=== PATIENT | male | born 1945 | race Caucasian/White ===

== ENCOUNTER 2017-12-15 22:39 | Observation (INO) | payer MEDICARE, OTHER ==
[~2017-12-15] VITALS: Ht 177.8 cm; Wt 79.4 kg
--- NOTE | 2017-12-15 22:56 | ER Report ---
History and Physical Time Seen By MD: 22:56 HPI/ROS CHIEF COMPLAINT: Nausea, weakness HISTORY OF PRESENT ILLNESS: Patient is a 72-year-old male here traveling in route to [facility] from [place] with complaints of dizziness, lightheadedness episode while driving. Patient reports that while driving he developed the symptoms and ate some food thinking that he is having either hyperglycemia or hypoglycemia. Earlier he discovered that he had forgotten most of his medications in [place] after which time he stopped in [place] and then proceeded onto route when he discovered that he was having the symptoms. He reports eating the banana bread and having apples with some resolution of symptoms however decided to stop at the hospital for evaluation due to concern for diabetic issues. He was found to have rapid heart rate with A. fib RVR without signs of chest pain, shortness of breath or palpitations. Patient reports that he has intermittent paroxysmal atrial fibrillation and has not been on his medication since from what I was able to discern from the patient. Patient was found to be in atrial fibrillation with RVR with a rate of 176 on initial 12-lead EKG. Patient reports that he does have his insulin with him and his glucose testing device. Patient denies recent illness, fevers, headache, blurred vision, muscle or neuro deficits, abdominal pain, chest pain, shortness breath. Patient reports having coronary artery bypass in 1992 after which she had a stress test in the same year. Patient denies having a recent stress test in the interim. REVIEW OF SYSTEMS: Constitutional: No fever, no chills, + dizziness intermittently Eyes: No discharge. ENT: No sore throat. Cardiovascular: No chest pain, no palpitations. Respiratory: No cough, no shortness of breath. Gastrointestinal: No abdominal pain, no vomiting. Genitourinary: No hematuria. Musculoskeletal: No back pain. Skin: No rashes. Neurological: No headache, + lightheadedness without neuro deficits Allergies: Coded Allergies: Penicillins (Verified Allergy, Unknown, 12/15/17) Home Meds Reported Medications Glipizide (GLIPIZIDE) 10 Mg Tablet, 10 MG PO BID 12/16/17 Aspirin (ASPIR 81) 81 Mg Tablet.dr, 81 MG PO QDAY, TAB 12/16/17 Metformin Hcl (METFORMIN HCL) 1,000 Mg Tablet, 2 TAB PO QDAY, TAB 12/16/17 Lisinopril (LISINOPRIL) 5 Mg Tablet, 5 MG PO QDAY, TAB 12/16/17 Atorvastatin Calcium (LIPITOR) 40 Mg Tablet, 2 TAB PO QDAY, TAB 12/16/17 Insulin Glargine (LANTUS) 100 Unit/Ml Soln, 100 UNIT SUBQ, ML 12/16/17 Warfarin Sodium (WARFARIN SODIUM) 5 Mg Tablet, 8 MG PO QDAY, TAB 12/16/17 Terazosin Hcl (TERAZOSIN HCL) 2 Mg Capsule, 2 MG PO QHS, CAPSULE 12/16/17 Bisoprolol Fumarate (BISOPROLOL FUMARATE) 5 Mg Tablet, 0.5 MG PO QDAY, #10 TAB 12/16/17 Constitutional Vital Sign - Last 24 Hours 12/15/17 12/15/17 12/15/17 12/15/17 22:49 22:50 22:54 23:00 Temp 97.8 Pulse 165 147 Resp 18 7 B/P (MAP) 151/129 (136) 151/129 136/97 (110) 146/98 (114) Pulse Ox 95 94 O2 Delivery Room Air 12/15/17 12/15/17 12/15/17 12/15/17 23:09 23:24 23:42 23:54 Pulse 146 103 126 Resp 15 13 13 B/P (MAP) 130/84 (99) Pulse Ox 95 90 94 12/15/17 12/16/17 12/16/17 12/16/17 23:59 00:00 00:30 00:42 Pulse 134 124 Resp 8 16 B/P (MAP) 159/107 (124) 146/122 (130) Pulse Ox 92 95 12/16/17 12/16/17 12/16/17 12/16/17 00:47 01:00 01:17 01:30 Pulse 135 75 Resp 13 15 B/P (MAP) 109/91 (97) 118/76 (90) Pulse Ox 90 94 12/16/17 12/16/17 12/16/17 12/16/17 01:35 01:35 01:40 01:45 Pulse 58 58 58 53 Resp 14 14 14 20 Pulse Ox 82 82 88 76 12/16/17 12/16/17 12/16/17 12/16/17 01:50 01:55 02:00 02:00 Pulse 52 46 45 Resp 7 14 16 B/P (MAP) 109/68 (82) 109/68 (82) Pulse Ox 90 94 90 12/16/17 12/16/17 12/16/17 12/16/17 02:05 02:05 02:10 02:15 Pulse 49 49 45 44 Resp 11 11 20 14 Pulse Ox 89 89 87 90 12/16/17 12/16/17 12/16/17 12/16/17 02:25 02:30 02:30 02:35 Pulse 38 42 39 59 Resp 19 21 33 B/P (MAP) 90/40 (57) 90/40 (57) 139/79 (99) Pulse Ox 90 90 98 12/16/17 12/16/17 12/16/17 12/16/17 02:35 02:40 02:50 02:55 Pulse 59 76 51 64 Resp 33 21 12 17 B/P (MAP) 139/79 (99) Pulse Ox 98 96 92 97 12/16/17 12/16/17 03:00 03:13 B/P (MAP) 137/82 (100) 124/75 (91) Intake and Output 12/15/17 12/15/17 12/16/17 15:00 23:00 07:00 Intake Total 55.5 ml Balance 55.5 ml Physical Exam General Appearance: The patient is alert, has no immediate need for airway protection and no signs of toxicity. No acute distress Eyes: Pupils equal and round no pallor or injection. ENT, Mouth: Mucous membranes are moist. Respiratory: There are no retractions, lungs are clear to auscultation. Cardiovascular: Irregularly irregular heartbeat Gastrointestinal: Abdomen is soft and non tender, no masses, bowel sounds normal. Neurological: No focal neurological deficits Skin: Warm and dry, no rashes. Musculoskeletal: Neck is supple non tender. Extremities are nontender, nonswollen and have full range of motion. DIFFERENTIAL DIAGNOSIS: After history and physical exam differential diagnosis was considered for dizziness including but not limited to peripheral and central causes of vertigo, orthostatic causes including dehydration, and blood loss, hypoglycemia, arrhythmia, A. fib RVR Medical Decision Making Data Points Result Diagram: 12/15/17 2300 12/15/17 2300 Laboratory Hematology Test 12/15/17 23:00 12/15/17 23:59 12/16/17 01:52 Red Blood Count 5.22 M/uL (4.00-5.60) Mean Corpuscular Volume 89.2 fL (80.0-96.0) Mean Corpuscular Hemoglobin 30.4 pg (26.0-33.0) Mean Corpuscular Hemoglobin Concent 34.1 g/dL (32.0-36.0) Red Cell Distribution Width 13.8 % (11.5-14.5) Mean Platelet Volume 10.0 fL (7.2-11.1) Neutrophils (%) (Auto) 83.8 % (39.4-72.5) Lymphocytes (%) (Auto) 8.6 % (17.6-49.6) Monocytes (%) (Auto) 6.6 % (4.1-12.4) Eosinophils (%) (Auto) 0.6 % (0.4-6.7) Basophils (%) (Auto) 0.4 % (0.3-1.4) Nucleated RBC Relative Count (auto) 0.1 /100WBC Neutrophils # (Auto) 9.3 K/uL (2.0-7.4) Lymphocytes # (Auto) 1.0 K/uL (1.3-3.6) Monocytes # (Auto) 0.7 K/uL (0.3-1.0) Eosinophils # (Auto) 0.1 K/uL (0.0-0.5) Basophils # (Auto) 0.0 K/uL (0.0-0.1) Nucleated RBC Absolute Count (auto) 0.01 K/uL Prothrombin Time 26.7 seconds (12.0-14.4) Prothromb Time International Ratio 2.42 Activated Partial Thromboplast Time 34 seconds (23-35) Sodium Level 140 mmol/L (137-145) Potassium Level 3.8 mmol/L (3.5-5.0) Chloride Level 97 mmol/L (98-107) Carbon Dioxide Level 28 mmol/L (22-30) Blood Urea Nitrogen 15 mg/dl (9-21) Creatinine 0.60 mg/dl (0.66-1.25) Glomerular Filtration Rate Calc > 60.0 Random Glucose 366 mg/dl (75-110) Calcium Level 9.4 mg/dl (8.4-10.2) Total Bilirubin 0.8 mg/dl (0.2-1.3) Aspartate Amino Transf (AST/SGOT) 37 U/L (0-35) Alanine Aminotransferase (ALT/SGPT) 57 U/L (0-56) Alkaline Phosphatase 52 U/L (0-126) B-Type Natriuretic Peptide 83 pg/ml (0-100) Total Protein 8.6 g/dl (6.3-8.2) Albumin 4.8 g/dl (3.5-5.0) Urine Color Straw Urine Clarity Clear Urine pH 5.0 pH (4.8-9.5) Urine Specific [place] 1.011 Urine Protein 30 mg/dL (NEGATIVE) Urine Glucose (UA) 500 mg/dL (NEGATIVE) Urine Ketones Trace mg/dL (NEGATIVE) Urine Blood Small (NEGATIVE) Urine Nitrite Negative (NEGATIVE) Urine Bilirubin Negative (NEGATIVE) Urine Urobilinogen Negative mg/dL (0.2-1.9) Urine Leukocyte Esterase Negative (NEGATIVE) Urine RBC 2 /HPF (0-2/HPF) Urine WBC <1 /HPF (0-5/HPF) Urine Squamous Epithelial Cells None /LPF (</=FEW) Urine Bacteria Negative /HPF (NONE-FEW) Urine Mucus None /HPF (NONE-FEW) Troponin I 0.287 ng/ml Chemistry Test 12/15/17 23:00 12/15/17 23:59 12/16/17 01:52 White Blood Count 11.1 k/uL (4.5-11.0) Red Blood Count 5.22 M/uL (4.00-5.60) Hemoglobin 15.9 g/dL (14.0-18.0) Hematocrit 46.6 % (42.0-52.0) Mean Corpuscular Volume 89.2 fL (80.0-96.0) Mean Corpuscular Hemoglobin 30.4 pg (26.0-33.0) Mean Corpuscular Hemoglobin Concent 34.1 g/dL (32.0-36.0) Red Cell Distribution Width 13.8 % (11.5-14.5) Platelet Count 274 K/uL (150-450) Mean Platelet Volume 10.0 fL (7.2-11.1) Neutrophils (%) (Auto) 83.8 % (39.4-72.5) Lymphocytes (%) (Auto) 8.6 % (17.6-49.6) Monocytes (%) (Auto) 6.6 % (4.1-12.4) Eosinophils (%) (Auto) 0.6 % (0.4-6.7) Basophils (%) (Auto) 0.4 % (0.3-1.4) Nucleated RBC Relative Count (auto) 0.1 /100WBC Neutrophils # (Auto) 9.3 K/uL (2.0-7.4) Lymphocytes # (Auto) 1.0 K/uL (1.3-3.6) Monocytes # (Auto) 0.7 K/uL (0.3-1.0) Eosinophils # (Auto) 0.1 K/uL (0.0-0.5) Basophils # (Auto) 0.0 K/uL (0.0-0.1) Nucleated RBC Absolute Count (auto) 0.01 K/uL Prothrombin Time 26.7 seconds (12.0-14.4) Prothromb Time International Ratio 2.42 Activated Partial Thromboplast Time 34 seconds (23-35) Glomerular Filtration Rate Calc > 60.0 Calcium Level 9.4 mg/dl (8.4-10.2) Total Bilirubin 0.8 mg/dl (0.2-1.3) Aspartate Amino Transf (AST/SGOT) 37 U/L (0-35) Alanine Aminotransferase (ALT/SGPT) 57 U/L (0-56) Alkaline Phosphatase 52 U/L (0-126) B-Type Natriuretic Peptide 83 pg/ml (0-100) Total Protein 8.6 g/dl (6.3-8.2) Albumin 4.8 g/dl (3.5-5.0) Urine Color Straw Urine Clarity Clear Urine pH 5.0 pH (4.8-9.5) Urine Specific [place] 1.011 Urine Protein 30 mg/dL (NEGATIVE) Urine Glucose (UA) 500 mg/dL (NEGATIVE) Urine Ketones Trace mg/dL (NEGATIVE) Urine Blood Small (NEGATIVE) Urine Nitrite Negative (NEGATIVE) Urine Bilirubin Negative (NEGATIVE) Urine Urobilinogen Negative mg/dL (0.2-1.9) Urine Leukocyte Esterase Negative (NEGATIVE) Urine RBC 2 /HPF (0-2/HPF) Urine WBC <1 /HPF (0-5/HPF) Urine Squamous Epithelial Cells None /LPF (</=FEW) Urine Bacteria Negative /HPF (NONE-FEW) Urine Mucus None /HPF (NONE-FEW) Troponin I 0.287 ng/ml Coagulation Test 12/15/17 23:00 Prothrombin Time 26.7 seconds Prothromb Time International Ratio 2.42 Activated Partial Thromboplast Time 34 seconds Urinalysis Test 12/15/17 23:59 Urine Color Straw Urine Clarity Clear Urine pH 5.0 pH (4.8-9.5) Urine Specific [place] 1.011 Urine Protein 30 mg/dL (NEGATIVE) Urine Glucose (UA) 500 mg/dL (NEGATIVE) Urine Ketones Trace mg/dL (NEGATIVE) Urine Blood Small (NEGATIVE) Urine Nitrite Negative (NEGATIVE) Urine Bilirubin Negative (NEGATIVE) Urine Urobilinogen Negative mg/dL (0.2-1.9) Urine Leukocyte Esterase Negative (NEGATIVE) Urine RBC 2 /HPF (0-2/HPF) Urine WBC <1 /HPF (0-5/HPF) Urine Squamous Epithelial Cells None /LPF (</=FEW) Urine Bacteria Negative /HPF (NONE-FEW) Urine Mucus None /HPF (NONE-FEW) EKG/Imaging EKG Interpretation 12 lead EKG December 15, 2302: A. fib RVR, rate 176, QTc 479, no ischemic changes though an isolated Q-wave was identified in lead 3 Rhythm: Atrial fibrillation with RVR 12 lead EKG: December 16 atrial fibrillation with slow ventricular response, rate 51, QTc 444, isolated Q wave in lead 3 again identified Rhythm: A. fib SVR Monitor Interpretation: Atrial Fibrillation Imaging Location: [facility] [place] Patient: Juan Frey : 1945 Visit/Account:[id number] Date of Sevice: 12/15/2017 TWO VIEW CHEST 12/15/2017 11:08 PM. INDICATION: Chest Pain COMPARISON: None. FINDINGS: Lungs are well-expanded. The lungs are clear. No pneumothorax or pleural effusion. Pulmonary vasculature is unremarkable. Heart size is normal. Postoperative changes to the mediastinum/sternum consistent with CABG. IMPRESSION: No acute cardiopulmonary abnormality. ED Course/Re-evaluation ED Course Patient is a 72-year-old male here with complaints of dizziness, lightheadedness, generalized weakness and diaphoresis which started approximately 1800 hrs. Patient has a history significant for diabetes, coronary artery disease status post CABG in 1992. Patient was found to be in A. fib RVR in the setting of a history of paroxysmal A. fib RVR. Patient reports that he has not taken majority of his medications which included bisoprolol, lisinopril, warfarin, metformin as he left them at home. Patient reports that he has refills for HIS medications in [facility]. Patient was initially given diltiazem 10 mg and placed on a diltiazem drip. I discussed the patient initially cardiology at [facility] with due to an elevated troponin and he advised me that the elevated troponin was likely type 2 demand ischemia that the patient could likely be sent home after getting the rate under control. He was also placed on overlapping Bisoprolol which is the patient's home medication but since he had not been on this since the , he was given 5 mg PO since it was likely out of his system completely I also discussed the patient with Dr. Matias who is the hospitalist on-call who also agreed with this course of action. Patient's repeat troponin was taken at 145 which was found to be elevated at 0.2. I contacted Dr. Alexander regarding the value who felt that this value was still within the spectrum of non ischemic type 2 demand from prior AFIB RVR. Patient's heart rate initially dropped further than expected into the high 30's which was surprising since it was a relatively low dose of the medication. Patient was given glucagon 4 mg for partial reversal of beta blockade toxicity which resulted initially in afib bradycardia with concurrent fatigue secondary to bradycardia. Heart rate was transiently increased. Patient was given zofran for glucagon related nausea and a liter of fluid for rehydration. Patient was later given 0.3 mg Atropine with transient increase. Throughout course, patient was mentating appropriately so patient was being adequately perfused in spite of low heart rates. I updated Dr. Matias regarding the subsequent findings and he accepted the patient to his service for further stabilization. Patient retained a stable blood pressure in spite of low heart rate during course with adequate perfusion. Decision to Disposition Date: Dec 16, 2017 Decision to Disposition Time: 03:44 Depart Departure Latest Vital Signs Vital Signs Date Time Temp Pulse Resp B/P (MAP) Pulse Ox O2 Delivery O2 Flow Rate FiO2 12/16/17 03:13 124/75 (91) 12/16/17 02:55 64 17 97 12/15/17 22:50 97.8 Room Air Impression: Primary Impression: A-fib Additional Impression: Dizziness Condition: Improved Disposition: Admitted from ER Problem Qualifiers MILTON ONEAL DO Dec 15, 2017 22:56
[2017-12-15] MEDS ORDERED: NS(*) 0.9% 1000 ML BAG 1,000 ML IV ONE (23:08)
[2017-12-15] MEDS ORDERED: DILTIAZEM 5 MG/ML 5ML IVPUSH IVP ONE (23:10)
--- NOTE | 2017-12-15 23:17 | EKG ---
FACILITY: [facility] - [place] PATIENT NAME: ISHAN SHELTON : [id number] MR: [id number] V: [id number] EXAM DATE: ORDERING PHYSICIAN: MILTON ONEAL TECHNOLOGIST: FENG Test Reason : a fib Blood Pressure : / mmHG Vent. Rate : 176 BPM Atrial Rate : 197 BPM P-R Int : 000 ms QRS Dur : 090 ms QT Int : 280 ms P-R-T Axes : 000 069 -24 degrees QTc Int : 479 ms Atrial fibrillation with rapid ventricular response Cannot rule out Inferior infarct , probably old , with isolated Q in III No previous ECGs available Confirmed by TYLER NOLEN ([id number]) on 12/16/2017 12:51:44 AM Referred By: Confirmed By:TYLER NLOEN
[2017-12-15 23:19] LABS: PLATELET COUNT, AUTOMATED 274 K/uL (150-450)
[2017-12-15 23:22] LABS: INR 2.42
[2017-12-15] MEDS ORDERED: ASPIRIN 81 MG CHEW PO ONE (23:40)
--- NOTE | 2017-12-15 23:50 | RADIOLOGY IMAGING REPORT ---
FACILITY: [facility] [place] PATIENT NAME: Juan Frey : 1945 MR: [id number] V: [id number] EXAM DATE: ORDERING PHYSICIAN: MILTON ONEAL TECHNOLOGIST: Location: [facility] Patient: Juan Frey : 1945 Visit/Account:[id number] Date of Sevice: 12/15/2017 TWO VIEW CHEST 12/15/2017 11:08 PM. INDICATION: Chest Pain COMPARISON: None. FINDINGS: Lungs are well-expanded. The lungs are clear. No pneumothorax or pleural effusion. Pulmo nary vasculature is unremarkable. Heart size is normal. Postoperative changes to the mediastinum/st ernum consistent with CABG. IMPRESSION: No acute cardiopulmonary abnormality. Report Dictated By: Latrell Horan MD at 12/15/2017 11:44 PM Report E-Signed By: Latrell Horan MD at 12/15/2017 11:46 PM WSN:[id number]
[2017-12-16] VITALS (25 sets, daily range): BP systolic 99–151; BP diastolic 58–98; Ht 177.8 cm; Wt 79.4 kg
[2017-12-16] MEDS ORDERED: HEPARIN* SOD/D5W 25000 U/500ML 500 ML IV ONE (00:20)
[2017-12-16] MEDS ORDERED: DILTIAZEM HCL* 100 MG ADDVIAL 100 MG in NS(*) 0.9% 100 ML ADDVANT BAG 100 ML IV SCH (00:45)
[2017-12-16] MEDS ORDERED: METOPROLOL TART 50 MG TAB PO ONE (00:50)
[2017-12-16] MEDS ORDERED: BISOPROLOL FUMARATE 5 MG TAB PO ONE (01:00)
[2017-12-16] MEDS ORDERED: BISO5TAB23 PO (01:44)
[2017-12-16] MEDS ORDERED: WARF5TAB23 PO (01:44)
[2017-12-16] MEDS ORDERED: TERA2CAP54 PO (01:44)
[2017-12-16] MEDS ORDERED: METF-452 PO (01:48)
[2017-12-16] MEDS ORDERED: LANI SUBQ (01:48)
[2017-12-16] MEDS ORDERED: ATOR40TA24 PO (01:48)
[2017-12-16] MEDS ORDERED: ASPI-1471 PO (01:48)
[2017-12-16] MEDS ORDERED: LISI5TAB25 PO (01:48)
[2017-12-16] MEDS ORDERED: GLIP-154 PO (01:48)
[2017-12-16] MEDS ORDERED: GLUCAGON 1 MG KIT ONE ×3 (02:23→02:34)
[2017-12-16] MEDS ORDERED: ATROPINE SUL 0.1MG/ML 10ML SYR ONE (02:27)
[2017-12-16] MEDS ORDERED: ONDANSETRON 4 MG/2 ML VIAL ONE (02:28)
--- NOTE | 2017-12-16 03:02 | EKG ---
FACILITY: [facility] - [place] PATIENT NAME: ISHAN SHELTON : [id number] MR: [id number] V: [id number] EXAM DATE: ORDERING PHYSICIAN: MILTON ONEAL TECHNOLOGIST: FENG Test Reason : Blood Pressure : / mmHG Vent. Rate : 051 BPM Atrial Rate : 037 BPM P-R Int : 000 ms QRS Dur : 086 ms QT Int : 482 ms P-R-T Axes : 000 065 089 degrees QTc Int : 444 ms Atrial fibrillation with slow ventricular response Abnormal ECG When compared with ECG of 15-DEC-2017 23:03, Vent. rate has decreased BY 125 BPM Minimal criteria for Inferior infarct are no longer present ST elevation has replaced ST depression in Inferior leads ST no longer depressed in Anterolateral leads T wave inversion no longer evident in Inferior leads Nonspecific T wave abnormality now evident in Lateral leads Confirmed by TYLER NOLEN ([id number]) on 12/16/2017 5:36:41 AM Referred By: KIMMY Confirmed By:TYLER NOLEN
[2017-12-16] MEDS ORDERED: NS(*) 0.9% 1000 ML BAG 1,000 ML IV PRN (03:31)
[2017-12-16] MEDS ORDERED: INSULIN HUM REG 100 UN/ML 3 ML VIAL SC PRN (03:35)
--- NOTE | 2017-12-16 04:09 | History & Physical ---
History of Present Illness Chief Complaint Dizziness and weakness. History of Present Illness 72 yr old male with dizziness and generalized weakness as he traveled across [place] on his way to [place] to meet up with family. He did not complain of chest pain, SOB, nausea, sweating and did not pass out. He did not feel he could go any further and stopped at [place] just before midnight. He has a history of intermittent atrial fib. and takes a beta-jeison daily for this however he say he has not had a dose since 12/13 when he left his meds at home by mistake. Also a history of hypertension, hyperlipidemia, diabetes, coronary artery disease, CABG x5 in 1992, stenting ? date, CVA in 2001 possibly related to atrial fib. Recently lost his ex-. His step-daughter lives in [place] where he was to meet her to collect some household goods. In the ER, his heart rate was initially 170-180/min and was treated with diltiazem bolus and drip. This dropped the heart rate quickly most likely due to overlapping effect with previous B-jeison, given the long half life of B-blockers in general. Fluids were started and he was given IV glucagon and atropine to help reverse the bradyarrhythmia. This made him nauseated. Initial troponin was 0.075 and subsequently increased to 0.287. Cardiology was contacted in [place] and declined transfer suggesting the elevation of the troponin was due to tachyarrhythmias. Patient admitted to ICU for further care. History Problems: (1) CAD, multiple vessel Status: Chronic Comment: S/P AL at age 48 years. (2) S/P CABG x 5 Status: Resolved Comment: 1992 in [place] followed by stenting procedure years later (?? what year). (3) Diabetes mellitus, type 2 Status: Chronic Comment: On multiple meds including metformin, glipizide and insulin. (4) Hyperlipidemia Status: Chronic Comment: On lipitor 40 mg daily. (5) Hypertension Status: Chronic Comment: On lisinopril, bisoprolol and terazosin. (6) CVA (cerebral vascular accident) Status: Resolved Comment: Occurred post -op CABG. (7) S/P TURP Status: Resolved (8) Sleep apnea, obstructive Status: Chronic Comment: Uses CPAP at night. (9) Depression Status: Chronic Comment: Not treated. Other Past Medical Hx Last flu shot 2016. Home Meds Reported Medications Glipizide (GLIPIZIDE) 10 Mg Tablet, 10 MG PO BID 12/16/17 Aspirin (ASPIR 81) 81 Mg Tablet.dr, 81 MG PO QDAY, TAB 12/16/17 Metformin Hcl (METFORMIN HCL) 1,000 Mg Tablet, 2 TAB PO QDAY, TAB 12/16/17 Lisinopril (LISINOPRIL) 5 Mg Tablet, 5 MG PO QDAY, TAB 12/16/17 Atorvastatin Calcium (LIPITOR) 40 Mg Tablet, 2 TAB PO QDAY, TAB 12/16/17 Insulin Glargine (LANTUS) 100 Unit/Ml Soln, 100 UNIT SUBQ, ML 12/16/17 Warfarin Sodium (WARFARIN SODIUM) 5 Mg Tablet, 8 MG PO QDAY, TAB 12/16/17 Terazosin Hcl (TERAZOSIN HCL) 2 Mg Capsule, 2 MG PO QHS, CAPSULE 12/16/17 Bisoprolol Fumarate (BISOPROLOL FUMARATE) 5 Mg Tablet, 0.5 MG PO QDAY, #10 TAB 12/16/17 Allergies: Coded Allergies: Penicillins (Verified Allergy, Unknown, 12/15/17) Hx Alcohol Use: Yes (occ.) Alcohol Use: Occassional Alcohol Used: Liquor Hx Substance Use Disorder: No Social Drug Use: Never Review of Systems Neurological: Weakness; No Syncope, No Confusion, No Dizziness, No Slurred Speech Eyes: No Vision Change, No Loss of Vision, No Photophobia Cardiovascular: No Chest Pain, No Palpitations, No Orthostatic Hypotension Respiratory: No Shortness of Breath, No Cough, No Wheezing Gastrointestinal: Nausea Genitourinary: No Dysuria, No Hematuria, No Urinary Incontinence Musculoskeletal: No Pain, No Sprain, No Strain, No Impaired Mobility Psychiatric: Depression, Anxiety Exam Vital Signs Vital Signs Date Time Temp Pulse Resp B/P (MAP) Pulse Ox O2 Delivery O2 Flow Rate FiO2 12/16/17 04:09 98.5 52 14 110/68 (82) 94 Nasal Cannula 1.0 General Appearance: Alert, Awake, No Acute Distress, Afebrile Neuro: No Gross deficits, Other (Seems a bit unsure of some details of history and current plans with family in [place].) Cardiovascular: Other (S1S2 are soft. No murmurs, gallops or rubs. Rate is slow.) Respiratory: Clear to Auscultation Chest: No Tenderness GI: Abd Soft and Non-Tender, Other (BS are active.) : No CVA Tenderness Extremities: Soft and Non Tender, Warm, Pulses, Perfused, Other (No edema.) Psych: Alert & Oriented X3, Appropriate Mood & Affect Medical Decision Making Data Points Result Diagram: 12/15/17229912/15/172299 Item Value Date Time Prothromb Time International Ratio 2.42 12/15/172299 Calcium Level 9.4 mg/dl 12/15/172299 Total Bilirubin 0.8 mg/dl 12/15/172299 Aspartate Amino Transf (AST/SGOT) 37 U/L H 12/15/172299 Alanine Aminotransferase (ALT/SGPT) 57 U/L H 12/15/172299 Alkaline Phosphatase 52 U/L 12/15/172299 Troponin I 0.075 ng/ml 12/15/172299 B-Type Natriuretic Peptide 83 pg/ml 12/15/172299 Troponin I 0.287 ng/ml *H 12/16/17 0152 Total Protein 8.6 g/dl H 12/15/172299 Albumin 4.8 g/dl 12/15/172299 EKG / Imaging EKG Interpretation Atrial fib with RVR. Isolated Q III. Monitor Interpretation: Atrial Fibrillation Imaging CXR clear. Pre-Admit Course ED Medications Reviewed. Medical Record Review: Yes Assessment and Plan Problems: (1) Dizziness Status: Acute Assessment & Plan: Most likely due to atrial fib with RVR due a combination of inadequate medication administration over the past 2-3 days in addition to altitude effect and stress. Heart rate was controlled (and then some) with IV diltiazem in ER requiring use of glucagon and atropine for the bradycardia. Will hold cardiac meds and antihypertensives until BP and HR are stable. Gentle IV fluids with NS at 100cc/hr. (2) A-fib Status: Acute Assessment & Plan: RVR which has converted (at 0447) to sinus rhythm at 58/min. Will resume meds when HR and BP are stable. Continue coumadin and aspirin for anticoagulation in face of previous CVA and extensive vascular disease. Follow INR and will recheck at 0700. (3) Elevated troponin level Status: Acute Assessment & Plan: Most likely due to tachyarrhythmia but degree of elevation from 0.075 to 0.287 seems a bit extreme. Will recheck the level at 0700 and hopefully it will be lower. If not, will need to see cardiology. (4) CAD, multiple vessel Status: Chronic Assessment & Plan: S/P CABGx5 1992 with follow-up stent years later. (5) Diabetes mellitus, type 2 Status: Chronic Assessment & Plan: Check ac and hs glucose and cover with SS insulin at this point. Will resume oral meds and insulin when stable. Would prefer the sulfonylurea be stopped if possible due to potential side effects and use metformin and insulin ( or another, newer oral agent) if possible for control of DM. (6) Hyperlipidemia Status: Chronic Assessment & Plan: Continue lipitopr 40 mg daily. (7) Hypertension Status: Chronic Assessment & Plan: Resume usual meds when stable. (8) CVA (cerebral vascular accident) Status: Resolved Assessment & Plan: Continue anticoagulation as above. (9) Sleep apnea, obstructive Status: Chronic Assessment & Plan: CPAP has been ordered. (10) Depression Status: Chronic Assessment & Plan: No current treatment. I am also concerned that patient may have a very early dementia most likely due to vascular disease which is affecting his memory and his decision making. This will need to be followed as outpt. Time Spent on Plan of Care: > 30 min Critical Time Spent: Additional 30 Minutes Venous Thromboembolism VTE Risk Physician Assess for VTE Risk: Yes Patient's VTE Risk: Low VTE Diagnostic Test 2 Days Prior to Admit: No Antithrombotics Is Pt On Any Antithrombotics?: Yes Exam Sepsis Risk: No Definite Risk Problem Qualifiers (1) A-fib: Atrial fibrillation type: paroxysmal Qualified Codes: I48.0 - Paroxysmal atrial fibrillation ORTIZ NOLEN MD FACP Dec 16, 2017 04:08
[2017-12-16 07:37] LABS: INR 2.42
[2017-12-16] MEDS: ASPIRIN 81 MG ENTERIC COATED PO SCH (08:20)
[2017-12-16] MEDS: glipiZIDE 5 MG TAB PO SCH ×3 (08:20→17:17)
[2017-12-16] MEDS: INSULIN HUM LISPRO 100 UN/ML 3 ML VIAL SUBQ PRN ×2 (08:24→12:04)
--- NOTE | 2017-12-16 10:56 | Medical Nutrition Therapy ---
Nutrition Anthropometrics Height (Inches): 70.00 Height (Calculated Centimeters: 177.573259 Weight (Pounds): 175 Weight (Calculated Kilograms): 79.379 BMI: 25 Otoniel Nutrition Score: Adequate Otoniel Nutrition Risk Score: 20 Dietary Referral Nutrition Risk Factors: Nutrition Risk Comment: Physical Findings Physical Appearance: Overweight BMI 25-29 Skin Appearance Skin Appearance: Edema Edema Location Modifier: Edema Location: Type of Edema: Degree of Edema: Gastrointestinal Symptoms GI Symtoms: Tube Present: Bowel Sounds: Recent Bowel Pattern: Stool Characteristics: Nutritional Diagnosis Nutritional Risk Acuity 2: Blood Glucose > 300mg/dl Nutritional Risk Acuity 4: Modified Diet Past Medical History: Hx of CAD, s/p CABG x5, T2DM, HTN, hyperlipidemia, CVA, TURP, TO, and depression. Nutritional Acuity: 2-Moderate Nutrition Diagnosis: Inappropriate Carb Intake Nutrition Etiology: Inappropriate Food Choice Nutrition Problem/Etiology/Sym: Inappropriate carb intake, as related to inappropriate food choice, as evidenced by elevated blood glucose >300, with BG at 375. Energy Requirement: 2000 (Delaplane, AF- 1.3) Protein Requirement: 63 (.8g/kg) Fluid Requirement: 2000 (1ml/kcal) Diet Type: Diabetic Nutrition Intervention: Cont diet as ordered, Encourage intake Drug: Warfarin Do Not Serve Any of the Follow: Broccoli, Brussel Sprouts, Spinach, [place] Lettuce, Cranberry Juice Nutrition Monitoring & Eval RD Patient Assessment Time: [address] Assessment Type: RD Screen Patient Nutrition Acuity: 2-Moderate Follow Up Date: Dec 20, 2017 Nutritional Comment: 12/16. Admitted for acute dizziness, afib, and elevated troponin levels. Pt has elevated whole BG levels >300. Today BG levels elevated at 375 and 266. Pt is receiving 2-10 units Humalog and 10mg Glipizide. Other notable labs inlcude: elevated troponin .525 and elevated liver enzymes. Pt also receiving 5mg Warfarin daily. Pt on diabetic diet, consumed 100% of breakfast this morning. Pt has an overweight BMI of 25. Recommend pt consume 2000 kcal and 63g protein. Will cont to monitor BG levels and intake. GARLAND LOVELL Dec 16, 2017 10:52
[2017-12-16] MEDS ORDERED: WARFARIN SOD 5 MG TAB PO SCH (13:00)
[2017-12-16] MEDS ORDERED: glipiZIDE 5 MG TAB PO SCH (17:00)
[2017-12-16] MEDS ORDERED: TERAZOSIN HCL 1 MG CAP PO SCH (21:00)
[2017-12-16] MEDS ORDERED: ATORVASTATIN 40 MG TAB PO SCH (21:00)
[2017-12-17 03:32] VITALS: BP 138/73
[2017-12-17 06:39] LABS: INR 1.82
[2017-12-17 07:56] LABS: PLATELET COUNT, AUTOMATED 184 K/uL (150-450)
[2017-12-17 08:28] VITALS: BP 165/92
[2017-12-17] MEDS: ASPIRIN 81 MG ENTERIC COATED PO SCH (08:31)
[2017-12-17] MEDS: glipiZIDE 5 MG TAB PO SCH (08:32)
[2017-12-17] MEDS ORDERED: BISOPROLOL FUMARATE 5 MG TAB PO SCH (09:00)
[2017-12-17] MEDS ORDERED: metFORMIN HCL XR 500 MG TABCR PO SCH (09:00)
--- NOTE | 2017-12-17 11:46 | Hospitalist Depart ---
Discharge Summary Reason for Hosp/Final Diag: (1) Dizziness Status: Acute Hospital Course & Plan: Most likely due to atrial fib with RVR due a combination of inadequate medication administration over the past 2-3 days and hyperglycemia. Heart rate was controlled (and then some) with IV diltiazem in ER requiring use of glucagon and atropine for the bradycardia. Resumed home beta jeison, patient tolerated well. (2) A-fib Status: Acute Hospital Course & Plan: RVR which has converted (at 0447) to sinus rhythm at 58/min. Resumed home beta jeison Continue coumadin and aspirin for anticoagulation in face of previous CVA and extensive vascular disease. (3) Elevated troponin level Status: Acute Hospital Course & Plan: Most likely due to tachyarrhythmia but degree of elevation with maximum 0.5. This trended down, no EKG changes of ischemia, no CP. Recommend outpatient stress test. He does have a significant history of CAD. (4) CAD, multiple vessel Status: Chronic Hospital Course & Plan: S/P CABGx5 1992 with follow-up stent years later. Recommend outpatient stress test with [facility] when available. (5) Diabetes mellitus, type 2 Status: Chronic Hospital Course & Plan: Will resume oral meds and insulin. Would prefer the sulfonylurea be stopped if possible due to potential side effects and use metformin and insulin ( or another, newer oral agent) if possible for control of DM. Defer to PCP on DM regimen. (6) Hyperlipidemia Status: Chronic Hospital Course & Plan: Continue Lipitor 40 mg daily. (7) Hypertension Status: Chronic Hospital Course & Plan: Continue home regimen. (8) CVA (cerebral vascular accident) Status: Resolved Hospital Course & Plan: Continue anticoagulation as above. (9) Sleep apnea, obstructive Status: Chronic Hospital Course & Plan: CPAP used while inpatient. If no recent sleep study would benefit. (10) Depression Status: Chronic Hospital Course & Plan: No current treatment. I am also concerned that patient may have a very early dementia most likely due to vascular disease which is affecting his memory and his decision making. This will need to be followed as outpt. Departure Weight (Pounds): 175 Weight (Ounces): 2.0 Result Diagram: 12/17/17 0749 12/17/17 0558 Condition: Improved Discharge: Home Follow-Up Labs: Finger Sticks Discharge Instructions Home Meds Reported Medications Glipizide (GLIPIZIDE) 10 Mg Tablet, 10 MG PO BID 12/16/17 Aspirin (ASPIR 81) 81 Mg Tablet.dr, 81 MG PO QDAY, TAB 12/16/17 Metformin Hcl (METFORMIN HCL) 1,000 Mg Tablet, 2 TAB PO QDAY, TAB 12/16/17 Lisinopril (LISINOPRIL) 5 Mg Tablet, 5 MG PO QDAY, TAB 12/16/17 Atorvastatin Calcium (LIPITOR) 40 Mg Tablet, 2 TAB PO QDAY, TAB 12/16/17 Insulin Glargine (LANTUS) 100 Unit/Ml Soln, 100 UNIT SUBQ, ML 12/16/17 Warfarin Sodium (WARFARIN SODIUM) 5 Mg Tablet, 8 MG PO QDAY, TAB 12/16/17 Terazosin Hcl (TERAZOSIN HCL) 2 Mg Capsule, 2 MG PO QHS, CAPSULE 12/16/17 Bisoprolol Fumarate (BISOPROLOL FUMARATE) 5 Mg Tablet, 0.5 MG PO QDAY, #10 TAB 12/16/17 Diet: Diabetic Venous Thromboembolism Antithrombotics Is Pt On Any Antithrombotics?: Yes Problem Qualifiers (1) A-fib: Atrial fibrillation type: paroxysmal Qualified Codes: I48.0 - Paroxysmal atrial fibrillation CHANG SALAZAR DO Dec 17, 2017 11:45
[2017-12-17] MEDS: INSULIN HUM LISPRO 100 UN/ML 3 ML VIAL SUBQ PRN (12:02)
== END 2017-12-17 11:38 | disposition home or self-care (01) ==
LOC: ER 22:59 → INTOOBSV 12-16 03:13 → ICU 12-16 03:13 → MED 12-16 15:45
PROVIDERS: ADMIT Internal Medicine; ATTEND Internal Medicine
DX: I48.91 Unspecified atrial fibrillation (principal); Z79.01 Long term (current) use of anticoagulants; R79.89 Other specified abnormal findings of blood chemistry; R07.89 Other chest pain; I25.810 Atherosclerosis of coronary artery bypass graft(s) without angina pectoris; E11.9 Type 2 diabetes mellitus without complications; E78.5 Hyperlipidemia, unspecified; I10 Essential (primary) hypertension; G47.33 Obstructive sleep apnea (adult) (pediatric); F32.9 Major depressive disorder, single episode, unspecified
CPT/HCPCS: 36415; 36416; 71046; 81001; 82553; 82948; 83880; 84484; 85025; 85610; 85730; 93005; 93306; 94660; 96372; 96374; 99284; A9270; G0378; J0461; J1610; J1815; J2405; J3490; J7030; J7050; 82040; 82247; 82310; 82374; 82435; 82565; 82947; 84075; 84132; 84155; 84295; 84450; 84460; 84520; 99283; 99291